=== PATIENT | female | born 1985 | race Caucasian/White ===

== ENCOUNTER 2016-07-06 22:53 | Emergency (ER) | payer OTHER ==
[~2016-07-06] VITALS: Ht 165.1 cm; Wt 94.5 kg
[~2016-07-06 22:53] MED LIST: HYDR-3825 PO
[2016-07-06 23:15] VITALS: BP 138/96; PULSE 86; RESP 16; O2SAT 100
--- NOTE | 2016-07-06 23:36 | ED.REPORT ---
HPI-Preg Under 20 Weeks Date of Service Jul 06, 2016 ED Provider: Suyapa Stewart MD Patient is a 31 year old female with a history of UTIs who is currently 12 weeks presents to the ED complaining of lower abdominal pain that began this morning. Patient reports experiencing abdominal pressure, with occasional sharp pains. She reports associated nausea but denies vomiting. Patient states that she constantly feels like she needs to urinate. She denies hematuria, dysuria, abnormal vaginal bleeding, fever, or chills. Patient states that she typically experiences dysuria when she has a UTI. The patient has not had any complications so far during this . Nursing Notes Stated Complaint: BLADDER PAIN Chief Complaint: Female Abdominal Pain Nursing Notes Reviewed: Yes Allergies: Coded Allergies: promethazine (Verified Allergy, Unknown, twitching, 04/29/15) Scheduled PRN Hydrocodone-Acetaminophen 7.5-325 mg (Hydrocodone-Acetaminophen 7.5-325 mg) 1 Each Tablet 1 TABLET PO Q4H PRN PRN For Pain General Time Seen by Provider: 23:42 Chief Complaint Abdominal pain, Urinary urgency Hx Obtained From: Patient Arrived By: Walk-in Onset Occurred: 13 - 16 hours ago Symptom Duration: Since onset Progression Since Onset: Gradually worsening Location: : Abdomen lower Quality: Pressure, Stabbing Severity: Current: Mild Severity: Maximum: Moderate Recent Healthcare: No recent doctor visit, No recent hospitalization Similar Sx Previous: No Past Medical History Past Medical History Reports: GERD Past Surgical History Reports: Cholecystectomy Smoking History Unknown if Ever Smoker Social History Other Social History: Good social support, , Local resident Ambulatory Status Wheelchair Review of Systems GI: Reports: Abdominal pain, Nausea, Denies: Vomiting Female: Reports: , Urinary urgency, Denies: Dysuria, Hematuria, Vaginal bleeding - abnl Complete sys rev & neg: except as marked. Physical Exam Initial Vital Signs Vital Signs (First) Date Time Temp Pulse Resp B/P Pulse Ox O2 Delivery O2 Flow Rate FiO2 07/06/16 23:15 36.6 86 16 138/96 100 Room Air Initial VS: Reviewed Head / Eyes: Atraumatic, Normocephalic, PERRL ENT: Mucous membranes moist, Conjunctiva normal, No scleral icterus Neck: Supple, Full range of motion Respiratory: Breath sounds normal, Clear to auscultation, No respiratory distress Cardiovascular: Regular rate & rhythm, Heart sounds normal Extremities: No swelling, No tenderness Skin: Warm, Dry, No cyanosis Neurologic: Alert, Oriented, Nonfocal Psychiatric: Mood/affect normal, Behavior normal, Normal thought content General/Constitutional: Awake, Alert, No acute distress Abdomen: Soft, No guarding, No rebound Tenderness/Guarding/Rebound: Positive: Tender suprapubic (mild) Female Genitourinary: Exam deferred : Exam deferred Interpretation & Diagnostics Lab Results Interpretation Result Diagram: 07/06/16 2330 07/06/16 2330 Test 07/06/16 23:15 07/06/16 23:30 07/06/16 23:35 Urine Color Yellow (YELLOW) Urine Appearance Clear (CLEAR,HAZY) Urine pH 6.0 (5.0-8.0) Urine Specific [place] 1.025 (1.003-1.035) Urine Protein Negativemg/dL (NEG,TRACE) Urine Glucose (UA) Negativemg/dL (NEGATIVE) Urine Ketones Negativemg/dL (NEGATIVE) Urine Occult Blood Negative (NEGATIVE) Urine Nitrite Negative (NEGATIVE) Urine Bilirubin Negative (NEGATIVE) Urine Urobilinogen Normalmg/dL (NORMAL) Urine Leukocyte Esterase Negative (NEGATIVE) Urine RBC 0-2/hpf (0-2) Urine WBC 0-5/hpf (0-5) Urine Epithelial Cells Few/hpf (NONE-MOD) Urine Crystals None seen (NONE SEEN) Urine Bacteria Few/hpf (NONE-FEW) Urine Hyaline Casts None/lpf (NONE) Urine Granular Casts None seen (NONE SEEN) Urine Waxy Casts None seen (NONE SEEN) Urine Red Blood Cell Casts None seen (NONE SEEN) Urine White Blood Cell Casts None seen (NONE SEEN) Urine Mucus Present (None Seen) Urine Trichomonas None seen (NONE SEEN) Urine Yeast None (NONE SEEN) Urinalysis Comment None Urine Culture Reflexed Not indicated White Blood Count 10.5th/mm3 (3.8-10.1) Red Blood Count 4.27mil/mm3 (3.90-5.20) Hemoglobin 13.1g/dL (12.0-15.6) Hematocrit 37.9% (35.0-46.0) Mean Corpuscular Volume 88.8fL (81-100) Mean Corpuscular Hemoglobin 30.7pg (27.0-35.0) Mean Corpuscular Hemoglobin Concent 34.6% (32.0-37.0) Red Cell Distribution Width 13.0% (12.3-15.4) Platelet Count 279bil/L (150-400) Neutrophils (%) (Auto) 68.6% (40-74) Lymphocytes (%) (Auto) 22.5% (14-46) Monocytes (%) (Auto) 7.0% (4-12) Eosinophils (%) (Auto) 1.4% (0-5) Basophils (%) (Auto) 0.3% (0-3) Sodium Level 138mEq/L (134-144) Potassium Level 4.4mEq/L (3.5-5.2) Chloride Level 101mEq/L (97-108) Carbon Dioxide Level 22mmol/L (18-29) Blood Urea Nitrogen 9mg/dL (6-20) Creatinine 0.60mg/dL (0.57-1.00) Estimat Glomerular Filtration Rate 168mL/min (>59) Glucose Level 92mg/dL (60-99) Calcium Level 9.0mg/dL (8.5-10.1) Magnesium Level 2.0mg/dL (1.6-2.6) Total Bilirubin 0.2mg/dL (0.0-1.2) Aspartate Amino Transf (AST/SGOT) 21U/L (0-50) Alanine Aminotransferase (ALT/SGPT) 31U/L (0-32) Alkaline Phosphatase 49U/L (25-150) Total Protein 6.9g/dL (6.4-8.4) Albumin 4.1g/dL (3.4-5.0) Lipase 24U/L (13-60) Hold [place] Top Tube Received (Received) Re-Eval/Medical Decision Med Decision/Clinical Course 31-year-old female approximately 12 weeks here with lower abdominal pain. Differential diagnosis includes but is not limited to urinary tract infection versus broad ligament pain versus pancreatitis versus threatened AB. Patient's ultrasound was not remarkable for any threatening problems to the . CBC, CMP, and urinalysis were all unremarkable. Lipase was normal. Patient was amenable to discharge with follow-up with her OB /[facility] and has been given very strict return precautions. Source of Hx: Old records Re-Evaluation/Progress : Time of Eval: 01:24 Patient Status: Condition improved Re-Evaluation/Progress Note: Rechecked the patient, who was informed that her US and labs were normal. Patient understands and agrees with the plan to be discharged home. Discharge instructions and follow-up discussed. All questions were addressed. Return to the ED warnings given. Counseled Regarding: Diagnosis, Need for follow-up, When/why to return to ED Discharge & Departure Primary Impression: Abdominal pain affecting Disposition: Home Discharge Condition All VS Reviewed: Yes Condition: Stable Patient Instructions: Acute Abdominal Pain (ED) Additional Instructions: Your labs tonight were normal. Your urine does not show any signs of infection. The ultrasound tonight was also completely normal. There does not seem to be anything concerning about your at this time. Follow-up with your [facility] early next week. Return to the Emergency Department if you experience worsening abdominal pain, vaginal bleeding, fever, or any other new or concerning symptoms. Your blood pressure was elevated in the Emergency Department today. You should follow-up with your primary care physician about your blood pressure, as you may need to be started on blood pressure medication. Referrals: Miya Victor PA-C (PCP) Frederic Attestation Portions of this note were transcribed by Candice Ramos. I, Dr. Stewart personally performed the history, physical exam and medical decision-making; I reviewed and confirmed the accuracy of the information in the transcribed note. Signed by: Frederic Noble, 07/07/2016 0125 copies to: Miya Victor PA-C, Rebecca A MD Jul 06, 2016 23:36 Candice Ramos Jul 06, 2016 23:47
[2016-07-06 23:41] LABS: APPEARANCE,URINE CLEAR (CLEAR,HAZY); COLOR,URINE YELLOW (YELLOW); OCCULT BLOOD,URINE NEGATIVE (NEGATIVE); UROBILINOGEN,URINE NORMAL (NORMAL)
[2016-07-06 23:45] LABS: BASOPHILS % (AUTO) 0.3 % (0-3); EOSINOPHILS % (AUTO) 1.4 % (0-5); Mean Corpuscular Hemoglobin 30.7 pg (27.0-35.0); Mean Corpuscular Volume 88.8 fL (81-100); NEUTROPHILS % (AUTO) 68.6 % (40-74); Platelet Count 279 bil/L (150-400)
[2016-07-07 01:33] VITALS: BP 128/93; PULSE 82; RESP 18; O2SAT 98
--- NOTE | 2016-07-07 09:33 | DRSVH ---
PROCEDURE: US OB<14 WKS INDICATIONS: preg abd pain OUTSIDE/PRIOR DATING DATA: Last menstrual period (LMP): Not available. LMP-based estimated date of delivery (LEAH): Not available. First dating scan (date and location): 06/06/2016. Estimated date of delivery (LEAH) from first dating scan: 01/15/2017. TECHNIQUE: Real-time scanning was performed of the fetus and maternal pelvic organs, with image documentation. Endovaginal scanning was also performed to better visualize the fetus and maternal ovaries. COMPARISON: None. FINDINGS: Embryo: OB-BALLASTER Ultrasound Procedure Report Early Gestation [employer] Mean Gestational Sac Diameter: - Gestational Age (MGSD): - [place] Rump Length: 6.86 cm Gestational Age (CRL): 13 weeks, 1 day Summary Fetus Summary Heart Rate: 166 bpm Comments: A normal yolk sac is noted. No perigestational bleeds. Measurement variability in dating: +/- 4 weeks by LMP, +/- 7 days by mean sac diameter (use before 6 weeks gestation if crown-rump length not able to be measured), +/- 5 days by crown-rump length (6-12 weeks gestation). Maternal organs: Ovaries are not well seen. Limited images through the kidneys demonstrate no hydro nephrosis. IMPRESSION: 1. A single living intrauterine gestation with appropriate interval growth. 2. No findings to explain abdominal pain. No significant discrepancy with the scene shifter radiology preliminary report. Dictated by: Daniele Moy M.D. on 07/07/2016 at 9:29 Approved by: Daniele Moy M.D. on 07/07/2016 at 9:31
== END 2016-07-07 01:31 | disposition home or self-care (01) ==
LOC: SED 22:53
DX: O99.89 Other specified diseases and conditions complicating pregnancy, childbirth and the puerperium (principal); R10.30 Lower abdominal pain, unspecified; K21.9 Gastro-esophageal reflux disease without esophagitis; Z3A.13 13 weeks gestation of pregnancy; Z87.440 Personal history of urinary (tract) infections; Z88.8 Allergy status to other drugs, medicaments and biological substances

== ENCOUNTER 2017-01-06 02:49 | Inpatient (IN) | payer OTHER ==
[~2017-01-06] VITALS: Ht 165.1 cm; Wt 107.5 kg
[2017-01-06] MEDS ORDERED: Lactated Ringer's 1,000 ML IV PRN (14:53)
[2017-01-06] MEDS ORDERED: Carboprost 250 mCg/mL Inj IM PRN (14:55)
[2017-01-06] MEDS ORDERED: Ondansetron 2 mg/mL 2 mL Inj IVPUSH PRN ×2 (14:55→18:20)
[2017-01-06] MEDS ORDERED: Hemorrhage Kit, Post Partum XX ONE (14:55)
[2017-01-06] MEDS ORDERED: Sodium Chloride LOK Flush 10 mL Syringe IVFLUSH PRN (14:55)
[2017-01-06] MEDS ORDERED: Oxytocin 10 Unit/mL Inj IM PRN (14:55)
[2017-01-06] MEDS ORDERED: Oxytocin 30 Units/500 mL LR 30 UNITS in IV Premix 1 EACH IV PRN ×2 (14:55→15:15)
[2017-01-06] MEDS ORDERED: Methylergonovine 0.2 mg/mL Inj IM PRN (14:55)
--- NOTE | 2017-01-06 15:08 | PCM.HPOB ---
Subjective Date of Service: Jan 06, 2017 Referring Provider: Admitting Physician: Vick Ramirez DO Primary Care Physician: Miya Victor PA-C Attending Physician: Vick Ramirez DO Chief Complaint Planned induction of labor due to intrahepatic cholestasis of and -induced hypertension. History of Present History of Present Illness Rhina is A 32-year-old GBS negative, expectant mother at 38 weeks and 5 days gestation. Recently diagnosed with intrahepatic cholestasis , as well as being treated for -induced hypertension. In chatting with [facility] maternal medicine informally late last week, they advised offering induction to Rhina; the pathogenesis and prognosis of intrahepatic cholestasis of is not well understood, but there are certainly risks factors for intrauterine demise. Rhina has several protective factors in her favor, including being started on ursodiol right away , as well as having very low total bile acids in her serum. Bile acids were drawn on January 01, showing level of 13.1 mol per liter. Of note, Rhina's sister had intrahepatic cholestasis with one of her pregnancies. She has otherwise just been struggling with some generalized anxiety, acute on chronic given her . The has otherwise been uneventful. Over the weekend, Rhina endorses she has been experiencing several contractions ; no vaginal discharge or rupture of membranes noted. In the office on Friday, she was dilated to 2 cm, station -3, effacement about 70%. OB History: (1), Para (0) Obstetrical Complications: Gestational Hypertension, Other (intrahepatic cholestasis of ) Past Medical History Obstetrical History: No prior surgical history. Medical History: 1. GERD 2. Nephrolithiasis 3. Cholecystectomy Hx Tobacco Use: No Smoking Status: Never Smoker Hx Alcohol Use: Yes (socially) Hx Substance Use: No Past Family History Family History Father of baby Ryan supportive and engaged, present here today. Living Arrangement: with Family Genetic Screening/Counseling Genetic Screening/Counseling: Negative Baby father-had child w defect: No Review of Systems Constitutional: Y: Change of appitite, Dizziness, Pain Eyes: Denies: Blurred Vision ENT: Denies: Ear Pain Cardiovascular: Denies: Chest Pain Respiratory: Denies: Cough Gastrointestinal: Reports: Abdominal Pain (intermittent contractions) Musculoskeletal: Denies: Redness, Swelling Skin/Breasts: Denies: Bruising, Discharge Skin: Denies: Lesions, Rash Neurological: Denies: Confusion, Dizziness Psychologic: Reports: Anxious Endocrine: Denies: Change in Appitite Medications Home medications 1. labetalol 100 mg by mouth twice a day 2. nifedipine 30 mg extended release, by mouth once daily 3. sertraline 25 mg take one by mouth once daily 4. Ursodiol 300 mg take one by mouth 3 times daily with food Allergy Coded Allergies: promethazine (Verified Allergy, Unknown, twitching, 04/29/15) Exam Vital Signs Reviewed and stable. Exam Category 1 tracing with good variability, baseline FHR 150 bpm. Constitutional: Well-developed, Well-nourished, Other (mildly overweight) HEENT: Atraumatic, EOMI, Scleral Anicteric Lungs: Clear to Auscultation, Clear to Percussion, Normal Air Movement Heart: Regular Rate/Rhythm, Normal S1, Normal S2 Abdomen: Gravid Extremities: Pulses Palpable x4, Warm, No Edema Neurological/Psychiatric: Alert, Oriented X3, Cooperative, No Acute Distress Neuro: Grossly Neurologically Intact Gynecologic: Normal: Anus/Perineum, Cervix (70% effaced, 5 cm dilation, station -3, cervix is mid position, fairly soft. (UPDATE 1939 hours: in hindsight, this was a misinterpretation. What I had been palpating was the anterior portion of the cervix effacing. The dilation is in fact 2 cm once the cervical os "flipped" from a posterior position). ), External Genitalia, Vagina/ Pelvic Support Labs/Diagnostics Maternal Blood Type: A ([id number]) Hx Rho(D) Immune Globulin: No Antibody Screen: Negative Group B Strep Results: Negative Previous with GBS: No Rubella: Immune OB Intrapartum Assessment/Plan Assessment 31-year-old GBS negative expectant mother, with intrahepatic cholestasis of and -induced hypertension, here for labor induction and augmentation. Santiago score of 8. Problems: (1) Intrahepatic cholestasis of Plan: Labor induction and augmentation with a favorable cervix. We'll start oxytocin. Pediatric hospitalist has also been informed of the mother's admission , as it would be safest to have pediatrics present at baby's . Osteopathic manipulation performed today with paraspinal lumbar tissue stimulation to the T12-L2 region. Status: Acute ICD Code: O26.619 (2) induced hypertension, antepartum Plan: Continue labetalol, discontinue nifedipine. Status: Acute ICD Code: O13.9 (3) Anxiety during in third trimester, antepartum Plan: Stable for now, Rhina did require 1 or 2 doses of very low-dose lorazepam couple weeks ago. Status: Chronic ICD Code: O99.343 Pain Evaluation: Adequate Pain Control (Rhina is interested in epidural, I contacted anesthesiology to inform them of this.) Post plan: Continue routine post care Vick Ramirez DO Jan 06, 2017 15:08
[2017-01-06] MEDS ORDERED: Lactated Ringer's 1,000 ML IV SCH (15:11)
[2017-01-06] MEDS ORDERED: LABE100T4 PO (15:34)
[2017-01-06] MEDS ORDERED: SERT25TA6 PO (15:34)
[2017-01-06] MEDS ORDERED: URSO300C2 PO (15:34)
[2017-01-06] MEDS ORDERED: PREN-75 PO (15:34)
[2017-01-06 16:12] LABS: Mean Corpuscular Hemoglobin 28.3 pg (27.0-35.0); Mean Corpuscular Volume 86.5 fL (81-100)
[2017-01-06] MEDS ORDERED: EPHEDrine Sulfate 50 mg/mL Inj IVPUSH PRN (18:20)
[2017-01-06] MEDS ORDERED: Atropine 1 mg/10 mL (Code) Syringe IVPUSH PRN (18:20)
[2017-01-06] MEDS ORDERED: Lactated Ringer's 500 ML IV ONE (18:20)
--- NOTE | 2017-01-06 18:30 | PCM.PNOBIP ---
Subjective Date of Service Jan 06, 2017 Delivery plan: Spontaneous Vaginal Delivery Subjective Feeling stronger contractions with the oxytocin. Requests epidural. Gastrointestinal: No N/V Activity: Ambulating Independently Group B Strep Results: Negative Rubella: Immune Blood Type: A ([id number]) Labs Laboratory Tests 01/06/17 16:05: White Blood Count 10.9, Red Blood Count 3.85, Hemoglobin 10.9, Hematocrit 33.3, Mean Corpuscular Volume 86.5, Mean Corpuscular Hemoglobin 28.3, Mean Corpuscular Hemoglobin Concent 32.7, Red Cell Distribution Width 13.9, Platelet Count 280 Exam Vital Signs Vital Signs Contraction frequency in minutes: MVUs: Vital Signs: VS reviewed, stable Heart Tracings Heart Tones Baseline bpm Heart Rate Variability: Moderate Heart Rate Accelleration: Present Heart Rate Deceleration: Absent Heart Rate Category: I Tocometry/IUPC Contraction frequency in minutes: MVUs: Sterile Vaginal Exam Cervical Dilation: 8 cms (UPDATE 193 hours: in hindsight, this was a misinterpretation. What I had been palpating was the anterior portion of the cervix effacing. The dilation is in fact 2 cm once the cervical os "flipped" from a posterior position). ) Cervical Effacement: 90 % Station: -2 Exam Abdomen: Abdomen non-tender Extremities: No edema General: Alert, Oriented X3, Cooperative, No Acute Distress Additional Information With verbal consent given, osteopathic manipulative treatment with inhibition to the paraspinal musculature of the T12-L2 musculature. OB Intrapartum Assessment/Plan Assessment Progressing well with oxytocin augmentation and osteopathic manipulative treatment to help with augmentation. Problems: (1) Active labor at term Plan: 1. Anesthesiology to place epidural 2. Once epidural has taken effect, will commit to AROM 3. Continued expectant management of anticipated . Status: Acute ICD Code: [id number] (2) Intrahepatic cholestasis of Plan: Continue ursodiol. Continue expectant management of planned with induction/augmentation. Status: Acute ICD Code: O26.619 (3) induced hypertension, antepartum Plan: Stable on oral labetalol. Status: Acute ICD Code: O13.9 (4) Anxiety during in third trimester, antepartum Status: Chronic ICD Code: O99.343 Intrapartum plan: Continue expected management Intrapartum Pain Management: May have epidural when desired Pain Evaluation: Adequate Pain Control (Rhina is interested in epidural, I contacted anesthesiology to inform them of this.) Post plan: Continue routine post care Vick Ramirez DO Jan 06, 2017 18:29
--- NOTE | 2017-01-06 18:56 | PCM.HPANE ---
Patient Data Date of Service: Jan 06, 2017 Surgeon Admitting Provider:Vick Ramirez DO Attending Provider:Vick Ramirez DO Primary Care Physician:Miya Victor PA-C Other Provider:Brenna Stewart Anesthesia Reason for Visit LABOR LABOR Ht/WT & BMI Height (Centimeters): 165 Weight (Kilograms): 107 Body Mass Index Allergies Coded Allergies: promethazine (Verified Allergy, Unknown, twitching, 04/29/15) Past Anesthesia History Anesthesia History: Denies:: Abnormal Airway, Anesthesia Reactions, Difficult Intubation, Fam Anesthesia Reaction, Fam Malignant Hypertherm, Malignant Hyperthermia Medications Hypertension Medication: Yes Home Meds Incl Beta Suzette: Yes Date Beta Suzette Taken: Jan 06, 2017 Time Beta Suzette Taken: 08:00 Active Scripts Sertraline HCl (Sertraline)25 Mg [id number] Mg PO DAILY #30 TABLET Ref 0 Prov:Vick Ramirez DO 01/06/17 #103/Iron Fumarate/FA ( Tablet)1 Each Tablet1 Each PO DAILY #30 TABLET Prov:Vick Ramirez DO 01/06/17 Labetalol 100 Mg [id number] Mg PO BID #60 TABLET Prov:Vick Ramirez DO 01/06/17 Ursodiol 300 Mg [id number] Mg PO TIDAC #90 CAPSULE Prov:Vick Ramirez DO 01/06/17 Discontinued Scripts Hydrocodone-Acetaminophen 7.5-325 mg 1 Each Tablet1 Tablet PO Q4H PRN For Pain # 15 TABLET Ref 0 Prov:Amol Brito PAC 04/29/15 History History of ENT Problems?: No HEENT History: Denies:: Abnormal Airway Cataracts Difficult Intubation Dysphagia Glaucoma Hearing Problem Sinus Problem TMJ Denture Type: None Teeth Condition: Within Normal Limits Hx of Heart Problems?: No Cardiovascular History: Denies:: AICD Abdominal Aortic Aneurism Atrial Fibrillation Cardiac Surgery Chest Pain Congestive Heart Failure Coronary Artery Disease Edema Heart Murmur Hypertension Irregular Heartbeat Pacemaker Peripheral Vascular Rheumatic Fever Thrombophlebitis Valvular Heart Disease Hx of Respiratory Problem?: No Respiratory History: Denies:: Asthma COPD Chest Surgery Cough Dyspnea Emphysema Hemoptysis Oxygen Administration Pneumonia Pulmonary Embolism Tuberculosis Use of C-PAP Machine Use of Inhalers / NEBS Hx Neurologic Problems?: No Neurological History: Denies:: Alzheimer's Disease CVA Dementia Dizziness Headaches Multiple Sclerosis Parkinson's Disease Peripheral Neuropathy Seizures TIA Hx of GI Problems?: Yes Gastrointestinal History: Positive for:: Gall Bladder Disease Hx of Problems?: No Female Hx: Positive for:: Currently Hx Musculoskeletal Problems?: No Hx Surgeries?: Yes (elen) Hx Alcohol Use: Yes (socially)Hx Substance Use: No Smoking Status: Never Smoker Stop/Bang Risk Assessment Category Category 1A: Patient has history of documented sleep apnea, and HAS NOT received any narcotic, sedative or anesthesia administration during this stay. Category 1B: Patient has history of documented sleep apnea, and HAS received any narcotic , sedative or anesthesia administration during this stay Category 2: Patient has SUSPECTED Obstructive Sleep Apnea, and HAS received any narcotic , sedative or anesthesia administration during this stay. Category 3: Patient has SUSPECTED Obstructive Sleep Apnea and HAS NOT received narcotic, sedative or anesthesia administration during this stay. Category 4: Outpatient in Procedural Areas with known sleep apnea or who screen positive for High Risk via the STOP/BANG questionnaire. Exam Exam General Appearance: Alert, Oriented X3, Cooperative, No Acute Distress HEENT/AIRWAY: MP 2 Lungs: Clear to Auscultation, Clear to Percussion, Normal Air Movement Heart: Regular Rate/Rhythm, Normal S1, Normal S2 Meds/Labs/Diagnostics Admission Meds Current Medications Lactated Ringer's (Lr) 1,000 ml @ 125 mls/hr Q8H IV Last administered on 16:35; Start 01/06/17 at 15:11 Ursodiol (Actigall) 300 mg TIDAC PO Last administered on 01/06/17 16:49; Start 01/06/17 at 17:00 Labs Test 01/06/17 16:05 01/06/17 16:33 01/06/17 16:50 White Blood Count 10.9th/mm3 (3.8-10.1) Red Blood Count 3.85mil/mm3 (3.90-5.20) Hemoglobin 10.9g/dL (12.0-15.6) Hematocrit 33.3% (35.0-46.0) Mean Corpuscular Volume 86.5fL (81-100) Mean Corpuscular Hemoglobin 28.3pg (27.0-35.0) Mean Corpuscular Hemoglobin Concent 32.7% (32.0-37.0) Red Cell Distribution Width 13.9% (12.3-15.4) Platelet Count 280bil/L (150-400) Urine Random Creatinine 88mg/dL (16-392) Urine Random Total Protein 12mg/dL (0-15) Urine Protein/Creatinine Ratio 0.14 (0-200) Sodium Level 135mEq/L (134-144) Potassium Level 4.2mEq/L (3.5-5.2) Chloride Level 101mEq/L (97-108) Carbon Dioxide Level 19mmol/L (18-29) Blood Urea Nitrogen 11mg/dL (6-20) Creatinine 0.51mg/dL (0.57-1.00) Estimat Glomerular Filtration Rate 203mL/min (>59) Glucose Level 101mg/dL (60-99) Calcium Level 9.0mg/dL (8.5-10.1) Total Bilirubin 0.2mg/dL (0.0-1.2) Aspartate Amino Transf (AST/SGOT) 35U/L (0-50) Alanine Aminotransferase (ALT/SGPT) 64U/L (0-32) Alkaline Phosphatase 118U/L (25-150) Total Protein 6.8g/dL (6.4-8.4) Albumin 3.2g/dL (3.4-5.0) Plan Impression Patient chart reviewed, patient interviewed and anesthestic plan with risks, benefits, and alternatives discussed, and informed consent obtained. NPO per Anesth. Guidelines: Yes ASA Physical Status: ASA2 Mod Systemic Disease Anesthetic Plan: Epidural Bene/Risks/Altern/Consents: Yes HP Complete Prior to Induction: Yes Amol King MD Jan 06, 2017 18:21
[2017-01-06] MEDS: Lactated Ringer's 1,000 ML IV SCH (19:37)
--- NOTE | 2017-01-06 19:44 | PCM.PNOBIP ---
Subjective Date of Service Jan 06, 2017 Delivery plan: Spontaneous Vaginal Delivery Subjective Because I had misinterpreted the cervical dilation on my last two checks, I have discussed a cervical balloon for further ripening of the cervix, and Rhina is amenable. Gastrointestinal: No N/V Activity: Ambulating Independently Group B Strep Results: Negative Rubella: Immune Blood Type: A ([id number]) Labs Laboratory Tests 01/06/17 16:05: White Blood Count 10.9, Red Blood Count 3.85, Hemoglobin 10.9, Hematocrit 33.3, Mean Corpuscular Volume 86.5, Mean Corpuscular Hemoglobin 28.3, Mean Corpuscular Hemoglobin Concent 32.7, Red Cell Distribution Width 13.9, Platelet Count 280 Exam Vital Signs Vital Signs Contraction frequency in minutes: MVUs: Vital Signs: VS reviewed, stable Heart Tracings Heart Tones Baseline bpm Heart Rate Variability: Moderate Heart Rate Accelleration: Present Heart Rate Deceleration: Absent Heart Rate Category: I Tocometry/IUPC Contraction frequency in minutes: MVUs: Sterile Vaginal Exam Cervical Dilation: 2 cms (Now under direct visualization with steriled speculum , the cervical os is in fact 2-cm. ) Cervical Effacement: 60 % Station: -2 Exam Abdomen: Abdomen non-tender Extremities: No edema Lungs: Clear to Auscultation, Clear to Percussion, Normal Air Movement Heart: Regular Rate/Rhythm, Normal S1, Normal S2 General: Alert, Oriented X3, Cooperative, No Acute Distress OB Intrapartum Assessment/Plan Problems: (1) Active labor at term Plan: Decrease Pitocin down to [address] cervical balloon for further ripening. May need to discuss turning the epidural down with anesthesia; will check the cervical dilation progress in a couple of hours. Status: Acute ICD Code: [id number] (2) Intrahepatic cholestasis of Status: Acute ICD Code: O26.619 (3) induced hypertension, antepartum Status: Acute ICD Code: O13.9 (4) Anxiety during in third trimester, antepartum Status: Chronic ICD Code: O99.343 Intrapartum plan: Continue expected management Intrapartum Pain Management: May have epidural when desired Pain Evaluation: Adequate Pain Control (Rhina is interested in epidural, I contacted anesthesiology to inform them of this.) Post plan: Continue routine post care Vick Ramirez DO Jan 06, 2017 19:44
--- NOTE | 2017-01-06 19:51 | PCM.PROC ---
Procedure Note Date of Service: Jan 06, 2017 Pre Procedure Diagnosis: Active term labor Post Procedure Diagnosis: Active term labor Procedure: Placement of cervical ripening balloon. Provider and Dry Cleaning Machine Operator: Vick Ramirez D.O. Indication for Procedure: Labor induction/augmentation Procedural Analgesia: Epidural in place. Procedure Details: An 18-[place] cervical ripening balloon was unpacked on a sterile field, and sterile saline was injected into each port to verify patency of the two balloons. Using a sterile lighted speculum, the cervical os was identified. Under sterile conditions, a pair of ring forceps was used to guide the tip of the catheter into the os, and the catheter was slightly advanced. The uterine balloon was insufflated with 40 cc of sterile saline; good capture was noted with appropriate tension on the catheter. Then, the vaginal (proximal) balloon was insufflated to 20 cc. Vaginal balloon just visible inside the os. The speculum was removed, guiding the catheter ports out through the opening. Procedure was well-tolerated; Rhina reports feeling a mild amount of pressure, but the epidural is helping. Post Procedure Plan: Continue expectant management of planned . Vick Ramirez DO Jan 06, 2017 19:51
--- NOTE | 2017-01-06 21:40 | PCM.PNOBIP ---
Subjective Date of Service Jan 06, 2017 Delivery plan: Spontaneous Vaginal Delivery Subjective Doing well, happy with epidural. Category I strip. Pain Management: Epidural Gastrointestinal: No N/V Activity: Other (Bedbound with epidural) Group B Strep Results: Negative Rubella: Immune Blood Type: A ([id number]) Labs Laboratory Tests 01/06/17 16:05: White Blood Count 10.9, Red Blood Count 3.85, Hemoglobin 10.9, Hematocrit 33.3, Mean Corpuscular Volume 86.5, Mean Corpuscular Hemoglobin 28.3, Mean Corpuscular Hemoglobin Concent 32.7, Red Cell Distribution Width 13.9, Platelet Count 280 Exam Vital Signs Vital Signs Contraction frequency in minutes: MVUs: Vital Signs: VS reviewed, stable Heart Tracings Heart Tones Baseline bpm Heart Rate Variability: Moderate Heart Rate Accelleration: Present Heart Rate Deceleration: Absent Heart Rate Category: I Tocometry/IUPC Contraction frequency in minutes: MVUs: Sterile Vaginal Exam Cervical Dilation: 3 cms (hard to say with balloon in place, but definite increase in dilation) Cervical Effacement: 60 % Station: -2 Exam Abdomen: Abdomen non-tender Extremities: No edema General: Alert, Oriented X3, Cooperative, No Acute Distress OB Intrapartum Assessment/Plan Problems: (1) Active labor at term Plan: Cervical ripening balloon, distal (uterine) balloon added 20 mLs of sterile saline; proximal (vaginal) balloon added 20 mLs sterile saline. Uterine balloon now a total of 60 mLs. Vaginal balloon now a total of 40 mLs. Status: Acute ICD Code: [id number] (2) Intrahepatic cholestasis of Status: Acute ICD Code: O26.619 (3) induced hypertension, antepartum Status: Acute ICD Code: O13.9 (4) Anxiety during in third trimester, antepartum Status: Chronic ICD Code: O99.343 Intrapartum plan: Continue expected management, Start pitocin Intrapartum Pain Management: Epidural Pain Evaluation: Adequate Pain Control Post plan: Continue routine post care Vick Ramirez DO Jan 06, 2017 21:40
--- NOTE | 2017-01-06 23:24 | PCM.PNOBIP ---
Subjective Date of Service Jan 06, 2017 Delivery plan: Spontaneous Vaginal Delivery Subjective Continues to do well, feeling pain more 5/10 now with contractions. Salazar catheter has been placed. Pain Management: Epidural Gastrointestinal: No N/V Activity: Other (Bedbound with epidural) Group B Strep Results: Negative Rubella: Immune Blood Type: A ([id number]) Labs Laboratory Tests 01/06/17 16:05: White Blood Count 10.9, Red Blood Count 3.85, Hemoglobin 10.9, Hematocrit 33.3, Mean Corpuscular Volume 86.5, Mean Corpuscular Hemoglobin 28.3, Mean Corpuscular Hemoglobin Concent 32.7, Red Cell Distribution Width 13.9, Platelet Count 280 Exam Vital Signs Vital Signs Contraction frequency in minutes: MVUs: Vital Signs: VS reviewed, stable Heart Tracings Heart Tones Baseline bpm Heart Rate Variability: Moderate Heart Rate Accelleration: Present Heart Rate Deceleration: Absent Heart Rate Category: I Tocometry/IUPC Contraction frequency in minutes: MVUs: Sterile Vaginal Exam Cervical Dilation: 4 cms Cervical Effacement: 60 % Station: -2 Exam Abdomen: Abdomen non-tender Extremities: No edema General: Alert, Oriented X3, Cooperative, No Acute Distress OB Intrapartum Assessment/Plan Problems: (1) Active labor at term Plan: Moderate progress with balloon catheter. Insufflated now, to max. uterine balloon at 80 mLs, and vaginal balloon at 60 mLs. Will wait until 60-90 minutes, then will attempt AROM. Status: Acute ICD Code: [id number] (2) Intrahepatic cholestasis of Status: Acute ICD Code: O26.619 (3) induced hypertension, antepartum Status: Acute ICD Code: O13.9 (4) Anxiety during in third trimester, antepartum Status: Chronic ICD Code: O99.343 Intrapartum plan: Continue expected management, Start pitocin Intrapartum Pain Management: Epidural Pain Evaluation: Adequate Pain Control Post plan: Continue routine post care Vick Ramirez DO Jan 06, 2017 23:23
[2017-01-07] MEDS: fentaNYL 2 mCg/mL-Bupiv 0.125% 100 ML EPIDURAL SCH ×3 (01:38→14:24)
--- NOTE | 2017-01-07 04:47 | PCM.PNOBIP ---
Subjective Date of Service Jan 07, 2017 Delivery plan: Spontaneous Vaginal Delivery Subjective At 0400, patient called for me, asking for a cervix check. Cervical dilation balloon was loose, and was able to be withdrawn easily. Dilation to 4-5 cm, 40- 50% effacement, -3 station. Maternal Date/Time of ROM: 01/07/2017, approximately 0435 Pain Management: Epidural Gastrointestinal: No N/V Activity: Other (Bedbound with epidural) Group B Strep Results: Negative Rubella: Immune Blood Type: A ([id number]) RH Type: Positive Labs Laboratory Tests 01/06/17 16:05: White Blood Count 10.9, Red Blood Count 3.85, Hemoglobin 10.9, Hematocrit 33.3, Mean Corpuscular Volume 86.5, Mean Corpuscular Hemoglobin 28.3, Mean Corpuscular Hemoglobin Concent 32.7, Red Cell Distribution Width 13.9, Platelet Count 280 Exam Vital Signs Vital Signs Contraction frequency in minutes: MVUs: Vital Signs: VS reviewed, stable Heart Tracings Heart Tones Baseline bpm Heart Rate Variability: Moderate Heart Rate Accelleration: Present Heart Rate Deceleration: Absent Heart Rate Category: I Tocometry/IUPC Contraction frequency in minutes: MVUs: Sterile Vaginal Exam Cervical Dilation: 5 cms Cervical Effacement: 50 % Station: -2 Exam Abdomen: Abdomen non-tender Extremities: No edema General: Alert, Oriented X3, Cooperative, No Acute Distress Additional Information AROM performed with sterile gloves. Clear amniotic fluid. OB Intrapartum Assessment/Plan Assessment AROM performed. Problems: (1) Anxiety during in third trimester, antepartum Plan: Continue expectant management of planned . Pitocin is at 2 milliunits. Status: Acute ICD Code: O99.343 (2) Intrahepatic cholestasis of Status: Acute ICD Code: O26.619 (3) induced hypertension, antepartum Status: Acute ICD Code: O13.9 (4) Anxiety during in third trimester, antepartum Status: Chronic ICD Code: O99.343 Intrapartum plan: Continue expected management, Start pitocin Intrapartum Pain Management: Epidural Pain Evaluation: Adequate Pain Control Post plan: Continue routine post care Vick Ramirez DO Jan 07, 2017 04:47
[2017-01-07] MEDS ORDERED: LORazepam 0.5 mg Tablet PO ONE (06:45)
--- NOTE | 2017-01-07 07:55 | PCM.PNOBIP ---
Subjective Date of Service Jan 07, 2017 Delivery plan: Spontaneous Vaginal Delivery Subjective IUPC placement. Was feeling quite anxious earlier. Maternal Date/Time of ROM: 01/07/2017, approximately 0435 Pain Management: Epidural Gastrointestinal: No N/V Activity: Other (Bedbound with epidural) Group B Strep Results: Negative Rubella: Immune Blood Type: A ([id number]) RH Type: Positive Labs Laboratory Tests 01/06/17 16:05: White Blood Count 10.9, Red Blood Count 3.85, Hemoglobin 10.9, Hematocrit 33.3, Mean Corpuscular Volume 86.5, Mean Corpuscular Hemoglobin 28.3, Mean Corpuscular Hemoglobin Concent 32.7, Red Cell Distribution Width 13.9, Platelet Count 280 Exam Vital Signs Vital Signs Contraction frequency in minutes: MVUs: Vital Signs: VS reviewed, stable Heart Tracings Heart Tones Baseline bpm Heart Rate Variability: Moderate Heart Rate Accelleration: Present Heart Rate Category: I Tocometry/IUPC Contraction frequency in minutes: MVUs: Sterile Vaginal Exam Cervical Dilation: 4 cms Cervical Effacement: 50 % Station: -3 Exam Abdomen: Abdomen non-tender Extremities: No edema General: Alert, Oriented X3, Cooperative, No Acute Distress OB Intrapartum Assessment/Plan Assessment IUPC placed at 0740 hrs. Problems: (1) Anxiety during in third trimester, antepartum Plan: Still progressing, albeit slowly. Progress in that os feels closer to 5- 6 cm now at placement of the IUPC. Will increase Pitocin. Status: Acute ICD Code: O99.343 (2) Intrahepatic cholestasis of Status: Acute ICD Code: O26.619 (3) induced hypertension, antepartum Status: Acute ICD Code: O13.9 (4) Anxiety during in third trimester, antepartum Plan: 0.5 mg lorazepam ordered once PRN. Status: Chronic ICD Code: O99.343 Intrapartum plan: Continue expected management, Start pitocin Intrapartum Pain Management: Epidural Pain Evaluation: Adequate Pain Control Post plan: Continue routine post care Vick Ramirez DO Jan 07, 2017 07:55
[2017-01-07] MEDS: Multivit-Miner-Folic Acid-Iron Tablet PO SCH (08:30)
--- NOTE | 2017-01-07 11:51 | PCM.PNOBIP ---
Subjective Date of Service Jan 07, 2017 Delivery plan: Spontaneous Vaginal Delivery Subjective Anesthesiology has given Rhina another bolus, as she was feeling pain and a great deal of anxiety. Nursing team had some excellent thoughts, including consideration of whether baby is asynclitic. Maternal Date/Time of ROM: 01/07/2017, approximately 0435 Pain Management: Epidural Gastrointestinal: No N/V Activity: Other (Bedbound with epidural) Group B Strep Results: Negative Rubella: Immune Blood Type: A ([id number]) RH Type: Positive Labs Laboratory Tests 01/06/17 16:05: White Blood Count 10.9, Red Blood Count 3.85, Hemoglobin 10.9, Hematocrit 33.3, Mean Corpuscular Volume 86.5, Mean Corpuscular Hemoglobin 28.3, Mean Corpuscular Hemoglobin Concent 32.7, Red Cell Distribution Width 13.9, Platelet Count 280 Exam Vital Signs Vital Signs Contraction frequency in minutes: MVUs: Vital Signs: VS reviewed, stable Heart Tracings Heart Tones Baseline bpm Heart Rate Variability: Moderate Heart Rate Accelleration: Present Heart Rate Category: I Tocometry/IUPC Contraction frequency in minutes: MVUs: Sterile Vaginal Exam Cervical Dilation: 5 cms (both interior and exterior os feels equally at 5 to me. Baby's head is not ballotable.) Cervical Effacement: 50 % Station: -3 Exam Abdomen: Abdomen non-tender Extremities: No edema General: Alert, Oriented X3, Cooperative, No Acute Distress OB Intrapartum Assessment/Plan Assessment Bedside ultrasound confirms vertex position. Manual exam exhibits head against the cervix; repositioning may have helped when nursing team felt baby was in fact ballotable 1-2 hours ago. Pitocin continues. Planned continues. Nursing team is going to structure the room psychosocially now to help Rhina with acute on chronic anxiety. Problems: (1) Anxiety during in third trimester, antepartum Plan: Nursing team also reports a right lateral vaginal wall, soft mobile lump that is palpable both intravaginal and intracervically. I do not appreciate this on my exam today, but I may simply be missing it. Possibilities include an inclusion cyst, Vikas's cyst, or a Muellerian remnant. Will need to watch this carefully, as it represents potential bleeding risk once begins. Status: Acute ICD Code: O99.343 (2) Intrahepatic cholestasis of Status: Acute ICD Code: O26.619 (3) induced hypertension, antepartum Status: Acute ICD Code: O13.9 (4) Anxiety during in third trimester, antepartum Status: Chronic ICD Code: O99.343 Intrapartum plan: Continue expected management, Start pitocin, AROM, IUPC placed Intrapartum Pain Management: Epidural Pain Evaluation: Adequate Pain Control Post plan: Continue routine post care Vick Ramirez DO Jan 07, 2017 11:51
[2017-01-07] MEDS: Lactated Ringer's 1,000 ML IV SCH ×2 (14:13→17:39)
[2017-01-07] MEDS ORDERED: Oxytocin 30 Units/500 mL LR 30 UNITS in IV Premix 1 EACH IV PRN ×2 (15:30→17:40)
[2017-01-07] MEDS ORDERED: Hemorrhage Kit, Post Partum XX ONE ×2 (16:00→17:40)
--- NOTE | 2017-01-07 17:27 | PCM.OBVAG ---
Vaginal Delivery Date of Service Jan 07, 2017 Pre Operative Diagnosis Pre Operative Diagnosis Early term labor at 35 weeks and 6 days gestation Post Operative Diagnosis Post Operative Diagnosis Early term spontaneous vaginal delivery Procedure Obstetical Procedure: Normal Spontaneous Vaginal Delivery, Repair of Perineal Tear (2nd degree) Cloth Colors Examiner/Pluck Trimmer Provider and Pluck Trimmer: Vick Ramirez D.O. Indication for Procedure Induction: Induction of labor, Pitocin augmentation, AROM Findings Obstetrical Findings: (Male), Cord (3 Vessel), 1 minute (7), 5 minutes (9), Placenta (Intact/Normal), Perineal Laceration (2nd degree) Analgesia/Medications Obstetrical Anesthesia: Epidural Procedure Details Procedure Details Rhina is a 31-yo now GBS-negative woman who was induced at 35 weeks and 5 days gestation for Intrahepatic Cholestasis of . Her labor induction duration was approximately 23 hours. Induction was initiated with a cervical balloon catheter and Pitocin. The induction process was complicated by breakthrough pain with epidural and episodic anxiety on Rhina's part. Salazar balloon removed at about 0400 hrs. this morning, with AROM performed at approximately 0430 hrs this morning with clear amniotic fluid. She achieved 6 centimeters at approximately 1508 hours per nursing team report (approximately 22 hours into induction), and was fully dilated at approximately 1540 hours today (approximately 22 hours into induction).I was called to the bedside for expected vaginal delivery from clinic in [place]. Baby presented OA left. With excellent pushing during contractions on Rhina's part, the baby's head was delivered relatively easily. No nuchal cord. Expectant delivery continued; with one additional push, the right shoulder was delivered anterior and first over a sterile blue towel. Baby had good tone, slightly dusky color, and began crying with stimulation; he was moved to mother' s chest for [id number]. Cord clamping was performed after about 30 seconds, as baby's breathing was intermittent; FOB cut the cord. Baby continued to transition on Mom's chest, with hospitalist char conveyor tender cellar at bedside to help with assessment. Baby weight 2908 grams, length 49.5 cm, head circumference 33.0 cm. AGA, at about 17th percentile for weight. Active management of the uterus and placenta was then started, with firm and steady fundal massage. The placenta was delivered within 2 minutes of baby's intact; 3-vessel cord noted. A first-degree perineal laceration along the right side was noted; I initially felt this was a second-degree laceration with some involvement of the fascia, but upon further examination concluded this to be a first-degree laceration. This was repaired with several interrupted sutures of 4-0 Vicryl, under local anesthetic with lidocaine. Hemostasis achieved. Pitocin was continued to run at 150 mLs/hour for uterine stimulation. EBL is 100 cc. Sponge and needle counts are accurate x2. Baby to on-call char conveyor tender cellar, will be establishing at [facility]. Specimen Specimens: Placenta IV Intake/Output Catheters: None Blood Loss & Administration Estimated Blood Loss: 100 Post Procedure Plan Post Procedure Plan Routine post- care. Post delivery Condition: Mom stable Vick Ramirez DO Jan 07, 2017 17:27
[2017-01-07] MEDS ORDERED: Witch Hazel-Glycerin Pads TOPICAL PRN (17:40)
[2017-01-07] MEDS ORDERED: Acetaminophen IV 1,000 MG in IV Premix 1 EACH IV PRN (17:40)
[2017-01-07] MEDS ORDERED: Methylergonovine 0.2 mg/mL Inj IM PRN (17:40)
[2017-01-07] MEDS ORDERED: Benzocaine (Dermoplast) 20% 60 Gm Spray TOPICAL PRN (17:40)
[2017-01-07] MEDS ORDERED: Oxytocin 10 Unit/mL Inj IM PRN (17:40)
[2017-01-07] MEDS ORDERED: LANOlin HPA 7 Gm Ointment TOPICAL PRN (17:40)
[2017-01-07] MEDS ORDERED: Carboprost 250 mCg/mL Inj IM PRN (17:40)
[2017-01-08] MEDS: Lactated Ringer's 1,000 ML IV SCH ×2 (01:39→09:39)
[2017-01-08 07:25] LABS: Mean Corpuscular Volume 87.2 fL (81-100)
--- NOTE | 2017-01-08 07:34 | PCM.PNOBPP ---
Subjective Date of Service Jan 08, 2017 Post : Spontaneous Vaginal Delivery Subjective All three; mom, dad and Juan Luis are sleeping comfortably this morning. I only awaken Rhina gently and briefly. She is doing well, but quite sore and feeling some lower pelvic pressure. Moderate, appropriate lochia. is going well, Juan Luis is latching very nicely. I return in the evening to follow-up in check with her further, as during the day she began complaining of right popliteal pain and we ordered a duplex ultrasound of the right lower extremity to check for any DVT. Ultrasound was negative. However, mom is occupied with consultation this evening, so I will cut my visit short tonight. In speaking with the nursing team earlier today, Rhina was endorsing a great deal of anxiety. I ordered hydroxyzine when necessary for her. Lochia: Normal Pain Management: PO pain meds Gastrointestinal: No N/V Postop Activity: Other (Bedbound with epidural) Group B Strep Results: Negative Rubella: Immune Blood Type: A ([id number]) RH Type: Positive Labs Laboratory Tests 01/08/17 07:00: White Blood Count 14.7, Red Blood Count 3.36, Hemoglobin 9.4, Hematocrit 29.3, Mean Corpuscular Volume 87.2, Mean Corpuscular Hemoglobin 28.0, Mean Corpuscular Hemoglobin Concent 32.1, Red Cell Distribution Width 14.2, Platelet Count 253 Exam Vital Signs Vital Signs BP: 119/74 P: 73 RR: 16 T: 97.0 Vital Signs: VS reviewed, stable Exam : Voiding without difficulty Extremities: No cords, Normal pulses, No tenderness/swelling General: Alert, Oriented X3, Cooperative, No Acute Distress OB Post Assessment/Plan Assessment 31-year-old mother now after labor induction and spontaneous vaginal delivery at 35 weeks and 6 days gestation for indication of intrahepatic cholestasis of and -induced hypertension. Problems: (1) anemia Plan: Continue daily iron supplement and vitamin. Status: Acute ICD Code: O90.81 (2) Anxiety disorder Qualifiers: Anxiety disorder type: unspecified anxiety disorder Qualified Code: F41.9 - Anxiety disorder, unspecified Plan: Continue sertraline 50 mg once daily, and hydroxyzine 25 mg up to 3 times daily by mouth as needed for anxiety breakthrough. We will target sertraline 100 mg dose daily in the outpatient setting. Status: Acute ICD Code: F41.9 (3) Intrahepatic cholestasis of Plan: Mild transaminitis continues today. We'll continue ursodiol until transaminases levels returned to normal. We'll need to follow transaminases in the outpatient setting for up to 8 weeks, as well serum bile acids. Status: Acute ICD Code: O26.619 (4) induced hypertension, antepartum Plan: Decrease labetalol to once daily dosing, reassess tomorrow. Status: Acute ICD Code: O13.9 (5) Anxiety during in third trimester, antepartum Plan: Increase sertraline to 50 mg once daily. Status: Resolved ICD Code: O99.343 (6) Anxiety during in third trimester, antepartum Status: Resolved ICD Code: O99.343 Pain Evaluation: Adequate Pain Control Post plan: Continue routine post care, Discharge home tomorrow Vick Ramirez DO Jan 08, 2017 07:34
[2017-01-08] MEDS: Ascorbic Acid 500 mg Tablet PO SCH ×2 (09:02→19:55)
[2017-01-08] MEDS: Multivit-Miner-Folic Acid-Iron Tablet PO SCH (09:09)
[2017-01-08] MEDS: hydrOXYzine Pamoate 25 mg Capsule PO PRN ×2 (11:28→19:55)
--- NOTE | 2017-01-08 18:27 | DRSVH ---
PROCEDURE: US VEINOUS LEG DUPLEX UNILATERAL, RIGHT INDICATIONS: LEG PAIN - KNEE TECHNIQUE: Real-time imaging, as well as color and pulse Doppler interrogation, were performed of the lower extr emity deep veins from the inguinal ligament to the popliteal fossa. COMPARISON: None. FINDINGS: The deep veins are normally compressible, and free of intraluminal thrombus. Color and pu lse Doppler demonstrate normal phasic intraluminal flow. There is normal augmentation response to di stal compression maneuver. IMPRESSION: No evidence of right lower extremity DVT. Dictated by: Shabnam Boykin M.D. on 01/08/2017 at 18:26 Approved by: Shabnam Boykin M.D. on 01/08/2017 at 18:26
[2017-01-09] MEDS: hydrOXYzine Pamoate 25 mg Capsule PO PRN (04:38)
[2017-01-09 06:39] LABS: Mean Corpuscular Hemoglobin 28.1 pg (27.0-35.0); Mean Corpuscular Volume 88.4 fL (81-100)
[2017-01-09] MEDS: Lactated Ringer's 1,000 ML IV SCH (09:39)
[2017-01-09] MEDS: Multivit-Miner-Folic Acid-Iron Tablet PO SCH (09:47)
[2017-01-09] MEDS: Ascorbic Acid 500 mg Tablet PO SCH ×2 (09:48→19:51)
--- NOTE | 2017-01-09 12:44 | PATH ---
SURGICAL PATHOLOGY Attending Physician:Vick Ramirez MD CASE STATUS: Signed Out PATIENT NAME: RIVAS MORENO PID: [id number] : 1985 DATE COLLECTED:01/07/2017 00:00 SPECIMEN: Placenta CLINICAL HISTORY: EARLY TERM LABOR, SPONTANEOUS VAGINAL DELIVERY, INTRAHEPATIC CHOLESTASIS OF AND INDUCED HYPERTENSION 1). PLACENTA FINAL DIAGNOSIS: Placenta, Membranes and Umbilical Cord: Placenta (439 grams). Mature chorionic villi without evidence of villitis or infarction. No evidence of maternal vascular changes. Umbilical cord: Three-vessel umbilical cord without inflammation or other pathologic change. Membranes: Normally formed membranes without inflammation or other pathologic change. ICD10: O26.619 O13.9 NOTE: The maternal vascular changes seen in maternal hypertension are not identified in the placenta. GROSS DESCRIPTION: The specimen is received in formalin, labeled with the patient's name, and consists of an intact placenta which includes the placental disc (439 g, 15.0 x 14.5 x 3.3 cm), membranes and umbilical cord (length-42.2 cm, diameter-1.3 x 1.0 cm). The membranes are ruptured 5.6 cm from the free edge of the placenta and are semitranslucent. The umbilical cord is attached 3.5 cm from the edge of the placenta and contains 3 vessels. The surface is smooth and shiny with multiple fletcher-white opacities (0.5 x 0.2 cm-2.6 x 2.5 cm) involving approximately 25% of the surface. No evidence of meconium is identified. The maternal surface is dark maroon with normal cotyledon formation. The placental body is spongy with no nodules, masses, lesions, hematomas or infarcts identified. Section code: (A) edge of placenta with membranes, umbilical cord; (B, C-D, E-F, G-H) placenta, 4 full-thickness sections. 01/08/17 ICD-9 CODES: CPT CODES: 1: 42406 Electronically Signed Out Leon Landeros MD, PhD [facility] [address] [place] [address] Technical component performed at [facility], [facility] [address], [address]
[2017-01-09] MEDS ORDERED: HYDR-3797 PO (20:10)
[2017-01-09] MEDS ORDERED: FERR-74 PO (20:10)
[2017-01-09] MEDS ORDERED: SERT50TA9 PO (20:10)
[2017-01-09] MEDS ORDERED: LABE100T4 PO (20:10)
--- NOTE | 2017-01-09 20:13 | PCM.DIOB ---
Obstetrical Disch Instruction Date of Service: Jan 09, 2017 Dates of Hospitalization Date of Hospital Admission Jan 06, 2017 at 14:47 Providers Admitting Physician: Vick Ramirez DO Primary Care Physician: Miya Victor PA-C Attending Physician: Vick Ramirez DO Discharge Diagnosis Problems: (1) anemia Plan: Continue taking iron supplement once daily, along with your vitamin. Status: Acute ICD Code: O90.81 (2) Anxiety disorder Qualifiers: Anxiety disorder type: unspecified anxiety disorder Qualified Code: F41.9 - Anxiety disorder, unspecified Plan: I recommend continuing the sertraline at 50 mg once a day. I also recommend considering going up to 100 mg dosing once a day. Follow-up with Miya Victor PA-C. Status: Chronic ICD Code: F41.9 (3) Intrahepatic cholestasis of Plan: Continue to take the ursodiol three times daily. Plan on getting weekly liver enzyme and bile acid testing for the next 8 weeks. Status: Acute ICD Code: O26.619 (4) induced hypertension, antepartum Plan: Continue labetalol once a day for now. Follow-up with Miya Victor PA-C in 2-3 weeks for blood pressure follow-up. Status: Acute ICD Code: O13.9 (5) Anxiety during in third trimester, antepartum Status: Resolved ICD Code: O99.343 (6) Anxiety during in third trimester, antepartum Status: Resolved ICD Code: O99.343 Diet Discharge Diet: No restrictions Activity Discharge Activity-General: Pelvic Rest for 6 weeks, No lifting >15 pounds for 2 weeks Dressing and Incisional Care Hygiene: May shower Follow Up Plan Follow Up Plan Follow-up with Dr. Ramirez for a post- check in 6 weeks. Follow-up with Miya Victor PA-C for primary care needs. Follow-up Provider (F9): Vick Ramirez DO Mid-level Provider (F9): Miya Victor PA-C Follow-up appointment: Weeks (6) Call your provider for: Fever or Chills, Shortness of breath, Heavy vaginal bleeding, Heavy bleeding, Epigastric pain, Excessive constipation, Vaginal discomfort, Red painful breasts Vick Ramirez DO Jan 09, 2017 20:13
--- NOTE | 2017-01-09 20:16 | PCM.DC.OB ---
Obstetrical Discharge Summary Date of Service Jan 09, 2017 Date of hospital admission Jan 06, 2017 at 14:47 Date of Discharge: Jan 09, 2017 Providers Admitting Physician: Vick Ramirez DO Primary Care Physician: Miya Victor PA-C Attending Physician: Vick Ramirez DO Problems: (1) anemia Status: Acute ICD Code: O90.81 (2) Anxiety disorder Qualifiers: Anxiety disorder type: unspecified anxiety disorder Qualified Code: F41.9 - Anxiety disorder, unspecified Status: Chronic ICD Code: F41.9 (3) Intrahepatic cholestasis of Status: Acute ICD Code: O26.619 (4) induced hypertension, antepartum Status: Acute ICD Code: O13.9 (5) Anxiety during in third trimester, antepartum Status: Resolved ICD Code: O99.343 (6) Anxiety during in third trimester, antepartum Status: Resolved ICD Code: O99.343 Brief History and Physical: Rhina is A 32-year-old GBS negative, expectant mother at 38 weeks and 5 days gestation. Recently diagnosed with intrahepatic cholestasis , as well as being treated for -induced hypertension. In chatting with [facility] maternal medicine informally late last week, they advised offering induction to Rhina; the pathogenesis and prognosis of intrahepatic cholestasis of is not well understood, but there are certainly risks factors for intrauterine demise. Rhina has several protective factors in her favor, including being started on ursodiol right away , as well as having very low total bile acids in her serum. Bile acids were drawn on January 01, showing level of 13.1 mol per liter. Of note, Rhina's sister had intrahepatic cholestasis with one of her pregnancies. She has otherwise just been struggling with some generalized anxiety, acute on chronic given her . The has otherwise been uneventful. Over the weekend, Rhina endorses she has been experiencing several contractions ; no vaginal discharge or rupture of membranes noted. In the office on Friday, she was dilated to 2 cm, station -3, effacement about 70%. Hospital Course: Rhina is a 31-year-old woman at 38 weeks and 5 days gestation, GBS negative, who presented for planned labor induction due to intrahepatic cholestasis of , as well as induced hypertension and overall general acute and chronic anxiety. Cervical balloon device was inserted to begin induction, as well as started on low-dose Pitocin. Labor induction took a total of about 23 hours, resulting in the of a baby boy. She required significant amounts of epidural boluses from the on-call anesthesiologist for pain and anxiety associated with her labor. The course of labor was otherwise uncomplicated. Physical exam and a discharge: HEENT: Normocephalic, atraumatic, sclera anicteric. Cardiac: Regular rate and rhythm, no murmurs Lungs: Clear to auscultation bilaterally Abdomen: Appropriately tender VS: BP 140/68, pulse 73, respirations 16, temperature 98 deg Ferrous Sulfate (Feosol) 325 Mg Tablet 325 MG PO BIDWM Prescribed by: VICK RAMIREZ DO Hydroxyzine Pamoate (HydrOXYzine Pamoate) 25 Mg Capsule 25 MG PO Q8H PRN PRN Anxiety Prescribed by: VICK RAMIREZ DO Labetalol (Labetalol) 100 Mg Tablet 100 MG PO DAILY Prescribed by: VICK RAMIREZ DO #103/Iron Fumarate/FA ( Tablet) 1 Each Tablet 1 EACH PO DAILY Prescribed by: VICK RAMIREZ DO Sertraline HCl (Sertraline) 50 Mg Tablet 50 MG PO DAILY Prescribed by: VICK RAMIREZ DO Ursodiol (Ursodiol) 300 Mg Capsule 300 MG PO TIDAC Prescribed by: VICK RAMIREZ DO Discontinued Medications Labetalol (Labetalol) 100 Mg Tablet 100 MG PO BID Prescribed by: VICK RAMIREZ DO Sertraline HCl (Sertraline) 25 Mg Tablet 25 MG PO DAILY Prescribed by: VICK RAMIREZ DO Disposition Discharge to home with baby boy. Discharge Diet: No restrictions Discharge Activity-General: Pelvic Rest for 6 weeks, Try not to overdue, Be up and about, Balance rest and activity, No lifting >15 pounds for 2 weeks copies to: Miya Victor PA-C, David M DO Jan 09, 2017 20:16
== END 2017-01-09 20:50 | disposition home or self-care (01) | DRG 775 ==
LOC: FBC 14:47
PROVIDERS: ADMIT Family Medicine; ATTEND Family Medicine
PROC: 0U7C7ZZ Dilation of Cervix, Via Natural or Artificial Opening (ICD-10-PCS; 2017-01-06)
PROC: 10H07YZ Insertion of Other Device into Products of Conception, Via Natural or Artificial Opening (ICD-10-PCS; 2017-01-06)
PROC: 10E0XZZ Delivery of Products of Conception, External Approach (ICD-10-PCS; principal; 2017-01-07)
PROC: 0KQM0ZZ Repair Perineum Muscle, Open Approach (ICD-10-PCS; 2017-01-07)
PROC: 10907ZC Drainage of Amniotic Fluid, Therapeutic from Products of Conception, Via Natural or Artificial Opening (ICD-10-PCS; 2017-01-07)
DX: O13.4 Gestational [pregnancy-induced] hypertension without significant proteinuria, complicating childbirth (principal); K83.1 Obstruction of bile duct; Z37.0 Single live birth; O99.62 Diseases of the digestive system complicating childbirth; O90.81 Anemia of the puerperium; O70.1 Second degree perineal laceration during delivery; O26.62 Liver and biliary tract disorders in childbirth; O99.344 Other mental disorders complicating childbirth; F41.9 Anxiety disorder, unspecified; Z3A.38 38 weeks gestation of pregnancy